=== PATIENT | female | born 1995 | race African-American/Black ===

== ENCOUNTER 2017-09-02 20:45 | Emergency (ER) | payer OTHER ==
[2017-09-02 22:01] LABS: ABS Basophils 0 10^3/ul (0-0.2); ABS Eosinophils 0.2 10^3/ul (0-0.6); ABS Lymphocytes 2.1 10^3/ul (1.0-4.8); ABS Monocytes 0.5 10^3/ul (0-0.8); ABS Nucleated RBC 0 10^3/ul; Eosinophil % 2.4 % (0-6); Hematocrit 39 % (35-47); Hemoglobin 12.7 g/dl (12.0-16.0); Lymphocyte % 31.1 % (25-47); Mean Corpuscular HGB Conc 33 g/dl (31-36); Mean Corpuscular Hemoglobin 26 pg (27-31); Mean Corpuscular Volume 79 fL (80-97); Mean Platelet Volume 8 um3 (7.4-10.4); Nucleated Red Blood Cells % 0.1; Platelet Count 300 10^3/ul (150-450); Red Blood Count 4.93 10^6/ul (4.0-5.4); Red Cell Distribution Width 14 % (10.5-15); White Blood Count 6.8 10^3/ul (3.5-10.8)
[2017-09-02 22:13] LABS: EGFR Non-African American 92.8 (>60)
[2017-09-02] MEDS ORDERED: Dexamethasone IV* 4 MG/ML 1 ML (4 MG) IM ONE (22:53)
[2017-09-02] MEDS ORDERED: Ketorolac INJ* 30 MG/ML 1 ML VIAL IM ONE (22:57)
--- NOTE | 2017-09-03 | ED ---
Lisbet Al Edward, scribed for Alexi Velasquez MD on 09/02/17 at 2123 . HPI Chest Pain - HPI Summary HPI Summary: 22 y/o female c/o sudden onset CP 30 minutes [employer], resolved now. The pt was leaning over the sink when the pain started earlier tonight. The CP is described as dull and deep, located "more in the back of the chest" with no radiation. The pain is not aggravated with position change. Pt c/o fluttering feeling in chest for the past 2 weeks. Pt also c/o lightheadedness. When the pt takes a deep breath she feels like she is not getting a full breath. Denies cough. Pt is not a smoker. Pt is on control (oral) for 2 years. Pt takes iron pills for an iron deficiency, off and on starting in January 2017. - History of Current Complaint Chief Complaint: EDChestPainROMI Hx Obtained From: Patient Onset/Duration: Started Minutes Ago Timing: Lasting Minutes Pain Intensity: 7 Pain Scale Used: 0-10 Numeric Chest Pain Radiates: No Character: Dull/Aching, Other: - deep Aggravating Factor(s): Nothing Alleviating Factor(s): Nothing Associated Signs and Symptoms: Positive: Lightheadedness - Allergy/Home Medications Allergies/Adverse Reactions: Allergies Allergy/AdvReac Type Severity Reaction Status Date / Time No Known Allergies Allergy Verified 09/02/17 21:13 PMH/Surg Hx/FS Hx/Imm Hx Previously Healthy: No Endocrine/Hematology History: Reports: Other Endocrine/Hematological Disorders - Anemic over the summer of 2016 Denies: Hx Diabetes Cardiovascular History: Denies: Hx Myocardial Infarction Infectious Disease History: No Infectious Disease History: Denies: Traveled Outside the [place] in Last 30 Days - Family History Known Family History: Negative: Cardiac Disease - Social History Occupation: Student Alcohol Use: Occasionally Hx Substance Use: No Substance Use Type: Reports: None Hx Tobacco Use: No Smoking Status (MU): Never Smoked Tobacco Review of Systems Constitutional: Negative Eyes: Negative ENT: Negative Positive: Chest Pain Respiratory: Negative Gastrointestinal: Negative Genitourinary: Negative Musculoskeletal: Negative Skin: Negative Neurological: Other - lightheadedness Psychological: Normal All Other Systems Reviewed And Are Negative: Yes Physical Exam - Summary Physical Exam Summary: Appearance: Well-appearing, Well-nourished Skin: Warm Eyes: Normal ENT: Normal Neck: Supple, nontender Respiratory: Clear to auscultation Chest: No pericardial friction rubs. Cardiovascular: Normal S1, S2. No murmurs. Normal distal pulses in tibial and radial bilaterally. Abdomen: Soft, nontender Musculoskeletal: Normal, Strength/ROM Intact Neurological: Normal, A&Ox3 Psychiatric: Normal Triage Information Reviewed: Yes Vital Signs On Initial Exam: Initial Vitals Temp Pulse Resp BP Pulse Ox 97.3 F 81 17 117/70 82 09/02/17 20:51 09/02/17 20:51 09/02/17 20:51 09/02/17 20:51 09/02/17 20:51 Vital Signs Reviewed: Yes Diagnostics - Vital Signs Vital Signs Temp Pulse Resp BP Pulse Ox 09/02/17 20:51 97.3 F 81 17 117/70 82 - Laboratory Result Diagrams: 09/02/17 21:48 09/02/17 21:48 Lab Statement: Any lab studies that have been ordered have been reviewed, and results considered in the medical decision making process. - Radiology CXR Xray Interpretation: No Acute Changes Radiology Interpretation Completed By: ED Physician - EKG 1 EKG Interpretation: 21:09 - SR @ [address] changes. No ectopy Re-Evaluation - Re-Evaluation 1 Re-Evaluation Time: 23:02 Change: Improved Chest Pain Course/Dx - Course Assessment/Plan: CXR NEGATIVE. EKG NEGATIVE. D-DIMER NEGATIVE. PT FEELS BETTER AFTER COURSE. LABS WNL. AGREES AND UNDERSTANDS D/C INSTRUCTIONS. - Diagnoses Provider Diagnoses: Chest pain Discharge - Discharge Plan Condition: Stable Disposition: HOME Patient Education Materials: Chest Pain (ED) Referrals: [facility] [Primary Care Provider] - 4 Days (PLEASE F/U IN 3-5 DAYS) Additional Instructions: PLEASE TAKE MEDICATIONS DIRECTED. PLEASE MAKE AN APPOINTMENT TO SEE YOUR PRIMARY MEDICAL PROVIDER WITHIN 3-5 DAYS. PLEASE RETURN TO THE ED TO IMMEDIATELY FOR WORSENING OR CONCERNING SYMPTOMS. The documentation as recorded by the Lisbet urbano Edward accurately reflects the service I personally performed and the decisions made by me, Alexi Velasquez MD.
[2017-09-03 00:04] VITALS: BP 111/66
--- NOTE | 2017-09-03 09:22 | RAD ---
INDICATION: Chest pain COMPARISON: Similar chest x-ray September 01, 2017 TECHNIQUE: PA and lateral views of the chest were obtained. FINDINGS: The heart and mediastinum are normal in size and contour. The lungs are grossly clear. There is no evidence of large pleural effusion. Visualized bones are normal for the patient's age. There is no radiographic evidence of free air beneath the diaphragm IMPRESSION: No radiographic evidence of acute cardiopulmonary disease.
== END 2017-09-03 00:03 | disposition home or self-care (01) ==
LOC: ED 20:45
DX: R07.9 Chest pain, unspecified (principal)
CPT/HCPCS: 36415; 71046; 80053; 83605; 84436; 84443; 84484; 84702; 85025; 85379; 93005; 96372; 99282; J1100; J1885